=== PATIENT | male | born 1965 | race Two or more races ===

== ENCOUNTER 2024-04-02 02:40 | Emergency (ER) | payer MEDICAID, OTHER ==
[~2024-04-02] VITALS: Ht 182.9 cm; Wt 90.9 kg
[2024-04-02 03:26] VITALS: BP 147/86; TEMP 98.3
[2024-04-02 03:28] VITALS: PULSE 75; RESP 18; O2SAT 90
== END 2024-04-02 04:10 | disposition home or self-care (01) ==
LOC: ER 02:40 → EDBD 02:40 → EDSEX 02:40 → ER 04:10
DX: R33.9 Retention of urine, unspecified (principal); I10 Essential (primary) hypertension; E78.5 Hyperlipidemia, unspecified; G89.29 Other chronic pain; M54.9 Dorsalgia, unspecified; Z98.890 Other specified postprocedural states